=== PATIENT | male | born 1930 | race Caucasian/White ===

== ENCOUNTER 2016-10-03 15:56 | Inpatient (IN) | payer BC ==
--- NOTE | ~2016-10-03 | CN ---
Consultation Report [facility] [address] [place]. [address] NAME: FRANCISCO AYALA : 29 STATUS : ADM IN PAT#: [id number] AGE: 86 ADM/REG DATE : 10/03/16 MR#: [id number] REPORT SERV DATE: 10/04/16 DICTATED BY: KAROLINA REYNOLDS DATE: 10/04/16 REPORT STATUS : Draft TRANSCRIBED BY: MODL DATE: 10/04/16 CONSULTATION DATE OF CONSULTATION: 10/03/2016 REASON FOR CONSULTATION: Consulted for osteomyelitis of the left foot and medical management. IDENTIFYING DATA: 1. PCP Bri Pelayo APN. 2. Orthopedist previously saw resident Dr. Carrillo at [facility]. HISTORY OF PRESENT ILLNESS: This is a pleasant 86-year-old, male, who presents to our facility under Dr. Regino Lopez for osteomyelitis of the left foot. The gentleman resides in assisted living facility. At present time, he does have a history of dementia, and he is a very poor historian. What information I have received is from his daughter who is POA. The patient has a history of prostate problems, glaucoma, has had a left foot I and D, where he resided previously in [place], [place], also previous hip replacement at that same facility of [facility] in 2012 previously and presently has had a hip replacement in August of 2016 at [facility]. The patient is on several medications for cardiac history. He is unaware that he even has heart problems. His daughter is not aware of all of his health issues as well. We are actually seeing him for medical management while he is inpatient for osteomyelitis of his left foot. PAST MEDICAL HISTORY: As much as known at present time: 1. Incontinence. 2. Prostate problems. 3. BPH. 4. Glaucoma. 5. Poor historian and based on his medication list, he has coronary artery disease or hypertension. HOME MEDICATIONS: 1. Ferrous sulfate 325 mg p.o. twice a day. 2. Proscar 5 mg p.o. every day at bedtime. 3. Lasix 20 mg p.o. daily. 4. Xalatan 0.005% ophthalmic drops, one drop at bedtime to left eye. 5. Melatonin 5 mg p.o. at bedtime. 6. Namenda 10 mg p.o. twice a day. 7. Remeron 7.5 mg p.o. at bedtime. 8. Percocet 5/325 one tab p.o. every 12 hours p.r.n. 9. MiraLAX powder one packet p.o. daily. 10.Albuterol MDI 2 puffs inhalation every four hours p.r.n. shortness of breath. 11.Norvasc 10 mg p.o. daily. Consultation Report [address] [place]. [address] NAME: FRANCISCO AYALA : 29 STATUS : ADM IN PAT#: [id number] AGE: 86 ADM/REG DATE : 10/03/16 MR#: [id number] REPORT SERV DATE: 10/04/16 DICTATED BY: KAROLINA REYNOLDS DATE: 10/04/16 REPORT STATUS : Draft TRANSCRIBED BY: MAREK DATE: 10/04/16 12.Vitamin C 500 mg p.o. with meals. 13.Aricept 5 mg p.o. twice a day. 14.Trusopt 2% ophthalmic solution, 1 drop ophthalmically twice a day. 15.Cardura 4 mg p.o. twice a day. 16.Doxycycline 100 mg p.o. every 12 hours, last taken 10/03/2016, when initiated unknown. 17.Ferrous sulfate 150 mg p.o. with breakfast. 18.Potassium chloride 20 mEq p.o. three times daily. 19.Zoloft 50 mg p.o. daily. 20.Timolol 0.5% ophthalmic gel 1 drop twice a day to right eye. 21.An antifungal cream to affected area p.r.n. twice daily. ALLERGIES: TO ZOSYN. SOCIAL HISTORY: The patient is a . in April of 2016 when he resided in [facility]. Due to health problems and distance from his daughter, who is ANA, she moved him to [place] which he resides in [facility] in assisted living facility. There are 2 children in the family, brother as well as his daughter. FAMILY HISTORY: The patient is an only child. His father is from an [place] at 57 years old. His mother was of ovarian cancer at 83 years old. SURGICAL HISTORY: 1. Left foot I and D on 07/14/2016 when patient resided in [place], [place], daughter relates from a callus that had gotten infected. Surgery was by Dr. Thomas. 2. In February of 2013, the patient had a left hip replacement that was also in [place], [place]. 3. Right hip replacement August of 2016 at [facility]. REVIEW OF SYSTEMS: Negative other than what is included in the HPI. The patient has no complaints of shortness of breath. No nausea and vomiting. No chest pain. No fever. No abdominal pain, displays no agitation. PHYSICAL EXAMINATION: VITAL SIGNS: From today blood pressure 141/66, respiratory rate 22, heart rate 81, temperature 98.4, O2 saturation 98% on room air. GENERAL: The patient is an 86-year-old, male, resting in bed in no acute distress. NEURO: His head is atraumatic. He is normocephalic. He can answer appropriately to questions but he is confused and a very poor historian. His mood is pleasant and appropriate. NECK: Supple. Trachea is midline. No JVD noted. No obvious thyromegaly or lymphadenopathy. EENT: His sclerae are nonicteric. His pupils are equal and reactive to light. His nares are patent. His mucous membranes are moist. His tongue is midline. No deviation, and his Consultation Report [address] [address] NAME: FRANCISCO AYALA : 29 STATUS : ADM IN [facility]#: [id number] AGE: 86 ADM/REG DATE : 10/03/16 MR#: [id number] REPORT SERV DATE: 10/04/16 DICTATED BY: KAROLINA REYNOLDS DATE: 10/04/16 REPORT STATUS : Draft TRANSCRIBED BY: MODL DATE: 10/04/16 soft palate rises equally on phonation. CHEST: No pain with palpation. LUNGS: Clear to auscultation bilaterally. He has normal respiratory effort. He has no increased work of breathing with conversation. CARDIOVASCULAR: S1, S2. Patient is positive for very loud murmur. Heart rate is 81 noted on telemetry at bed side, sinus rhythm. ABDOMEN: Soft nontender with active bowel sounds. No palpable organomegaly. EXTREMITIES: Pulses are very diminished bilaterally. He does have bilateral edema. No calf tenderness. His left foot has a dressing intact, and he has bilateral Podus boots in place. SKIN: Warm and dry. No unusual rashes or lesions. Normal color, turgor, appropriate for age. PSYCH: The patient is pleasant and cooperative. Appropriate mood and affect. Very poor historian. LABORATORY DATA: Sodium 139, potassium 4.2, chloride 104, BUN 29, creatinine 1.21, GFR 62, glucose 96, calcium 8.8. White blood cell 7.2, hemoglobin 9.6, hematocrit 30.0, platelets 182. He presently has a chest x-ray ordered, and also has an EKG ordered. Dr. Lopez has ordered an MRI of his left foot with contrast and a bilateral lower extremity arterial Doppler for him in the morning. ASSESSMENT AND PLAN: 1. Osteomyelitis of the left foot along with cellulitis. Aware, for which he is admitted by Dr. Regino Lopez. He was seen by Dr. Faye of Infectious Disease, and the patient will receive a left foot culture. He is on vanc, and Azactam was added to his regimen. He is on normal saline at 50 mL/h. There was also a consult for Vascular to see the patient in the a.m. 2. Coronary artery disease, hypertension. The patient is on several cardiac medications. The daughter was unsure of what diagnosis and reason for all these medications. We are going to place patient on telemetry, obtain an EKG. We will continue his Norvasc, his Cardura, we will hold his Lasix for now. 3. Dementia. Aware. The patient's Namenda, Remeron, Aricept, and Zoloft daily will be continued. 4. Benign prostatic hyperplasia. We are aware. We will continue his Proscar. The a.m. labs to be obtained; CMP, CBC, hemoglobin A1c. He had blood cultures and a sedimentation rate ordered, EKG, portable chest x-ray, PT/INR, magnesium. The patient presently resides at [facility] in an assisted living. His daughter is the POA, her number is area code [phone] Faye has already ordered to receive old records from the patient's hip surgery at [facility] and from his admission for the left foot I and D at [facility] in [place], [place]. The hospitalist group would like to thank you for this consultation. We will continue to follow with you and the patient as needed and call us if we can be of any further assistance. Consultation Report [facility] [address] [place]. [address] NAME: FRANCISCO AYALA : 28 STATUS : ADM IN PAT#: [id number] AGE: 86 ADM/REG DATE : 10/03/16 MR#: [id number] REPORT SERV DATE: 10/04/16 DICTATED BY: KAROLINA REYNOLDS DATE: 10/04/16 REPORT STATUS : Draft TRANSCRIBED BY: MARKE DATE: 10/04/16 /MAREK Karolina Reynolds NP / [id number] CC: Colton Cunha
--- NOTE | ~2016-10-03 | OP ---
Record Of Formerly [facility] [address] [place]. [address] NAME: FRANCISCO AYALA : 29 STATUS : ADM IN PAT#: [id number] AGE: 86 ADM/REG DATE : 10/03/16 MR#: [id number] REPORT SERV DATE: 10/11/16 DICTATED BY: SHERLEY MILTON DATE: 10/11/16 REPORT STATUS : Draft TRANSCRIBED BY: MODRoman DATE: 10/11/16 DATE OF PROCEDURE: 10/08/2016 PREOPERATIVE DIAGNOSES: 1. Left 3rd metatarsophalangeal joint osteomyelitis. 2. Left chronic ulceration. 3. Peripheral vascular disease. POSTOPERATIVE DIAGNOSES: 1. Left 3rd metatarsophalangeal joint osteomyelitis. 2. Left chronic ulceration. 3. Peripheral vascular disease. PROCEDURES: 1. Left third digit amputation. 2. Left third metatarsal head amputation. SURGEON: Kanchan Milton D.P.M. ANESTHESIA: General local anesthetic. ESTIMATED BLOOD LOSS: Minimal. COMPLICATIONS: None. INJECTABLES: Approximately 10 mL of a 1:1 mixture of 1% lidocaine plain and 0.5% Marcaine plain. CULTURES: Include aerobic, anaerobic, acid fast, fungal, Gram stain. SPECIMENS: Include 3rd digit as well as 3rd metatarsal head. Last specimen is proximal margin of the third metatarsal, this is on the left side. MATERIALS: Include skin bharath, 4-0 nylon. PROCEDURE IN DETAIL: Under mild sedation, the patient was brought to the operating room and placed on the operating table in a supine position. Following general anesthesia, local anesthesia obtained about the patient's left foot. Left foot, ankle, and lower leg were scrubbed, prepped, and draped in usual aseptic manner. Attention was directed to the procedure. Procedure #1 is left 3rd digit and 3rd metatarsal head amputation. After Dr. Aaron completed his angioplasty of the lower legs, attention was directed to the left foot where a semi-elliptical incision was made encompassing the base of the third digit and encompassing the plantar probing ulceration to the sub 3rd metatarsal head. At this time, sharp dissection continued down and complete disarticulation of the 3rd metatarsophalangeal Record Of [facility]ly [facility] [address] [place]. [address] NAME: FRANCISCO AYALA : 29 STATUS : ADM IN PAT#: [id number] AGE: 86 ADM/REG DATE : 10/03/16 MR#: [id number] REPORT SERV DATE: 10/11/16 DICTATED BY: SHERLEY MILTON DATE: 10/11/16 REPORT STATUS : Draft TRANSCRIBED BY: MAREK DATE: 10/11/16 ensued. Deep cultures were taken. The toe was sent to Pathology for evaluation. The 3rd metatarsal head was noted to be necrotic and nonviable and very soft, and again nonviable upon manipulation. At this time, a sagittal saw was utilized to resect the 3rd metatarsal just proximal to the surgical neck and a proximal margin was sent as well. The head and the proximal margins were sent to Pathology for evaluation. At this time, pulse lavage ensued and attention directed to closure, 2-0 Vicryl for the deep tissue. The skin was reapproximated and coapted, full-thickness with 4-0 nylon and skin bharath. A well-padded sterile dressing and well-padded postoperative shoe were applied. The patient tolerated the procedure and anesthesia well and was transferred to the recovery room with vital signs stable and vascular status intact to all toes. Following a period of postoperative monitoring, the patient will be transferred to floor and will resume antibiotics as per Infectious Disease and Dr. Aaron from the Vascular Service will be following as well. JESSICA/MAREK Kanchan Milton D.P.M. / [id number] CC: Colton Cunha Sherry R.
--- NOTE | ~2016-10-03 | OP ---
Record Of Operation [facility] [address] [place]. [address] NAME: FRANCISCO AYALA : 28 STATUS : DIS IN PAT#: [id number] AGE: 86 ADM/REG DATE : 10/03/16 MR#: [id number] REPORT SERV DATE: 10/16/16 DICTATED BY: SAMY AARON DATE: 10/15/16 REPORT STATUS : Draft TRANSCRIBED BY: MODL DATE: 10/15/16 DATE OF PROCEDURE: 10/08/2016 PREPROCEDURE DIAGNOSIS: Ischemia, left lower extremity. POSTOPERATIVE DIAGNOSES: 1. Left peroneal artery and anterior tibial artery proximal occlusion. 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 PROCEDURES PERFORMED: 1. Antegrade left superficial femoral artery catheterization with direct arteriography. 2. Left lower extremity runoff. 3. Selective catheterization of the left anterior tibial artery and peroneal artery with direct arteriography. 4. Atherectomy, left peroneal artery with a CSI 1.25 catheter secondary angioplasty with 3 x 8 balloon. 5. Atherectomy of the left anterior tibial artery with a CSI 1.25 catheter with secondary angioplasty with 3 x 10 balloon. ANESTHESIA: Local MAC. COMPLICATIONS: None. INDICATION FOR PROCEDURE: Secondary to this very pleasant 86-year-old gentleman presenting with evidence of arterial insufficiency of the left lower extremity, recommendations were made for arteriography to further define his peripheral vascular system and repair this if appropriate. Risks and benefits discussed. Consent was obtained. DETAILS OF PROCEDURE: The patient was brought to the endovascular operating room, placed in supine position, prepped and draped in routine sterile fashion with attention to the left lower extremity. The left SFA was then cannulated with a micropuncture needle in antegrade fashion followed by a wire and a sheath, performed arteriogram and the proximal, mid, and distal SFA, which was patent. Catheter was then advanced to this level. A 6-Slovenian sheath was then placed and a catheter was advanced down to the below-knee popliteal segment. Arteriogram demonstrated occlusion of the peroneal artery and the proximal segment associated 99% obstruction. The anterior tibial artery was also occluded proximally. A wire was then advanced into the peroneal artery and this was then passed distally and then atherectomy was then performed with a CSI 1.25 catheter; standard technique followed by a 3 x 8 angioplasty, this adequately opened this vessel. Next, the anterior tibial artery was then catheterized. A wire was then worked through this obstruction and atherectomy was then performed with a CSI 1.25 catheter; secondary angioplasty with 3 x 10 balloon. Completion imaging showed patency of the both vessels; however, the tibioperoneal trunk had some narrowing and additional angioplasty was required. Completion imaging showed wide patency of the peroneal and the anterior tibial segments with good flow to the foot. At this point, wires and catheters used were then removed. The StarClose was used to close the femoral puncture site. The patient tolerated the procedure well. Record Of Operation [facility] [address] [facility] [facility] [place]. [address] NAME: FRANCISCO AYALA : 28 STATUS : DIS IN PAT#: [id number] AGE: 86 ADM/REG DATE : 10/03/16 MR#: [id number] REPORT SERV DATE: 10/16/16 DICTATED BY: SAMY AARON DATE: 10/15/16 REPORT STATUS : Draft TRANSCRIBED BY: MAREK DATE: 10/15/16 MILENA/MAREK Samy Aaron M.D. / [id number]
[2016-10-03 17:02] LABS: BASOPHILS 0.1 %; BASOPHILS ABSOLUTE 0.01 10/3/uL (0.0-0.16); EOSINOPHILS 1.7 %; EOSINOPHILS ABSOLUTE 0.12 10/3/uL (0.0-0.53); HEMOGLOBIN 9.6 g/dL (13.6-17.8); IMMATURE GRANULOCYTES 0.1 %; IMMATURE GRANULOCYTES ABSOLUTE 0.01 10/3/uL (0.0-0.11); LYMPHOCYTES 28.7 %; LYMPHOCYTES ABSOLUTE 2.05 10/3/uL (0.67-4.30); MEAN CORPUSCULAR HEMOGLOB 27.3 pg (26.0-34.0); MEAN PLATELET VOLUME 9.8 fL (9.2-13.0); MONOCYTES 9.5 %; MONOCYTES ABSOLUTE 0.68 10/3/uL (0.21-1.20); NEUTROPHILS 59.9 %; NEUTROPHILS ABSOLUTE 4.28 10/3/uL (2.02-8.40); PLATELET COUNT 182 10/3/uL (150-400); RED CELL COUNT 3.52 10/6/uL (4.7-6.1)
[2016-10-03 17:04] LABS: MANUAL DIFF NO %; MEAN CORPUSCULAR VOLUME 85.2 fL (80-100); WHITE BLOOD CELLS 7.2 10/3/uL (4.5-10.5)
[2016-10-03] MEDS ORDERED: PROSCAR5 PO (17:16)
[2016-10-03] MEDS ORDERED: NORV10 PO (17:16)
[2016-10-03 17:17] LABS: CALCIUM, SERUM 8.8 MG/DL (8.5-10.4); CHLORIDE, SERUM 104 MMOL/L (96-112); CO2 (CARBON DIOXIDE) 25 MMOL/L (24-34); CREATININE 1.21 MG/DL (0.70-1.30); GFR AFRICAN AMERICAN 62 ML/MIN (>=60); GFR NON AFRICAN AMERICAN 54 ML/MIN (>=60); GLUCOSE, SERUM 96 MG/DL (60-99); POTASSIUM, SERUM 4.2 MMOL/L (3.5-5.3); SODIUM, SERUM 139 MMOL/L (135-148)
[2016-10-03] MEDS ORDERED: XALAT OPH (17:17)
[2016-10-03] MEDS ORDERED: L20 PO (17:17)
[2016-10-03] MEDS ORDERED: MELATONIN5 M1 PO (17:18)
[2016-10-03] MEDS ORDERED: REM15 PO (17:18)
[2016-10-03 17:19] LABS: BUN (BLOOD UREA NITROGEN) 29 MG/DL (6-23)
[2016-10-03] MEDS ORDERED: ZOL50 PO (17:19)
[2016-10-03] MEDS ORDERED: MIRALAX POWDER1 PKT PO (17:19)
[2016-10-03] MEDS ORDERED: CARDU4 PO (17:20)
[2016-10-03] MEDS ORDERED: TRUSOPT2 % OPH (17:20)
[2016-10-03] MEDS ORDERED: ARICEPT5 PO (17:20)
[2016-10-03] MEDS ORDERED: NAMENDA10 MG PO (17:21)
[2016-10-03] MEDS ORDERED: FERROUS SULF325 M1 PO (17:21)
[2016-10-03] MEDS ORDERED: [UNRECOGNIZED DRUG - OTHER] (17:22)
[2016-10-03] MEDS ORDERED: TIMOLOL GEL0.5 % OPH (17:23)
[2016-10-03] MEDS ORDERED: VITC500 PO (17:23)
[2016-10-03] MEDS ORDERED: KLOR-CON M2020 MEQ PO (17:24)
[2016-10-03] MEDS ORDERED: PCET PO (17:25)
[2016-10-03] MEDS ORDERED: PROAIR HFA INH (17:26)
[2016-10-03] MEDS ORDERED: DORYX100 MG PO (17:27)
[2016-10-03] MEDS ORDERED: FESO4 PO (17:31)
[2016-10-03 18:17] LABS: SED RATE 95 MM/HR (0-15)
[2016-10-04 04:11] LABS: BASOPHILS 0.2 %; BASOPHILS ABSOLUTE 0.01 10/3/uL (0.0-0.16); EOSINOPHILS 3.2 %; EOSINOPHILS ABSOLUTE 0.15 10/3/uL (0.0-0.53); HEMOGLOBIN 8.7 g/dL (13.6-17.8); IMMATURE GRANULOCYTES 0.2 %; IMMATURE GRANULOCYTES ABSOLUTE 0.01 10/3/uL (0.0-0.11); LYMPHOCYTES 25.7 %; LYMPHOCYTES ABSOLUTE 1.21 10/3/uL (0.67-4.30); MEAN CORPUS HGB CONC 32.6 g/dL (32.0-36.0); MEAN CORPUSCULAR HEMOGLOB 28.2 pg (26.0-34.0); MEAN CORPUSCULAR VOLUME 86.4 fL (80-100); MEAN PLATELET VOLUME 9.8 fL (9.2-13.0); MONOCYTES 4.9 %; MONOCYTES ABSOLUTE 0.23 10/3/uL (0.21-1.20); NEUTROPHILS 65.8 %; NEUTROPHILS ABSOLUTE 3.09 10/3/uL (2.02-8.40); PLATELET COUNT 144 10/3/uL (150-400); RBC DISTRIBUTION WIDTH 17.7 % (12.0-16.0); RED CELL COUNT 3.09 10/6/uL (4.7-6.1); WHITE BLOOD CELLS 4.7 10/3/uL (4.5-10.5)
[2016-10-04 04:13] LABS: HEMATOCRIT 26.7 % (40.0-51.0); MANUAL DIFF NO %
[2016-10-04 04:16] LABS: INTERNATIONAL NORMAL RATI 1.2 UNITS (-); PROTIME (NOT ORD) 14.9 SEC (12.0-14.5)
[2016-10-04 04:30] LABS: A/G RATIO 0.5 (0.7-1.9); CHLORIDE, SERUM 107 MMOL/L (96-112); CO2 (CARBON DIOXIDE) 26 MMOL/L (24-34); CREATININE 0.99 MG/DL (0.70-1.30); GFR AFRICAN AMERICAN 79 ML/MIN (>=60); GFR NON AFRICAN AMERICAN 68 ML/MIN (>=60); GLOBULIN 3.7 G/DL (2.5-4.1); GLUCOSE, SERUM 97 MG/DL (60-99); POTASSIUM, SERUM 3.8 MMOL/L (3.5-5.3); SGOT(AST) 16 U/L (5-40); SGPT(ALT) 22 U/L (5-65); SODIUM, SERUM 141 MMOL/L (135-148); TOTAL BILIRUBIN 0.3 MG/DL (0-1.2); TOTAL PROTEIN 5.7 G/DL (6.0-8.5)
[2016-10-04 04:31] LABS: ALKALINE PHOSPHATASE 117 U/L (45-117); BUN (BLOOD UREA NITROGEN) 25 MG/DL (6-23)
[2016-10-05 07:25] LABS: BASOPHILS 0.2 %; BASOPHILS ABSOLUTE 0.01 10/3/uL (0.0-0.16); EOSINOPHILS 0 %; HEMATOCRIT 28.7 % (40.0-51.0); HEMOGLOBIN 9.3 g/dL (13.6-17.8); IMMATURE GRANULOCYTES 0.2 %; IMMATURE GRANULOCYTES ABSOLUTE 0.01 10/3/uL (0.0-0.11); LYMPHOCYTES 29.1 %; LYMPHOCYTES ABSOLUTE 1.19 10/3/uL (0.67-4.30); MEAN CORPUS HGB CONC 32.4 g/dL (32.0-36.0); MEAN CORPUSCULAR HEMOGLOB 27.6 pg (26.0-34.0); MEAN CORPUSCULAR VOLUME 85.2 fL (80-100); MONOCYTES 4.6 %; MONOCYTES ABSOLUTE 0.19 10/3/uL (0.21-1.20); NEUTROPHILS 65.9 %; NEUTROPHILS ABSOLUTE 2.69 10/3/uL (2.02-8.40); PLATELET COUNT 195 10/3/uL (150-400); RBC DISTRIBUTION WIDTH 17.4 % (12.0-16.0); RED CELL COUNT 3.37 10/6/uL (4.7-6.1); WHITE BLOOD CELLS 4.1 10/3/uL (4.5-10.5)
[2016-10-05 07:26] LABS: MANUAL DIFF NO %
[2016-10-05 07:37] LABS: CALCIUM, SERUM 8.3 MG/DL (8.5-10.4); CHLORIDE, SERUM 107 MMOL/L (96-112); CO2 (CARBON DIOXIDE) 23 MMOL/L (24-34); CREATININE 0.92 MG/DL (0.70-1.30); GFR AFRICAN AMERICAN 86 ML/MIN (>=60); GFR NON AFRICAN AMERICAN 75 ML/MIN (>=60); PHOSPHORUS, SERUM 2.9 MG/DL (2.5-4.5); POTASSIUM, SERUM 4.1 MMOL/L (3.5-5.3); SODIUM, SERUM 140 MMOL/L (135-148)
[2016-10-05 07:38] LABS: BUN (BLOOD UREA NITROGEN) 21 MG/DL (6-23); GLUCOSE, SERUM 128 MG/DL (60-99)
[2016-10-05 08:22] LABS: PROCALCITONIN 0.06 ng/mL (<0.5)
[2016-10-05 09:38] LABS: SED RATE 78 MM/HR (0-15)
[2016-10-05 11:28] LABS: C-REACTIVE PROTEIN 93.6 MG/L (<8.0)
[2016-10-06 07:05] LABS: BUN (BLOOD UREA NITROGEN) 16 MG/DL (6-23); CALCIUM, SERUM 8.3 MG/DL (8.5-10.4); CHLORIDE, SERUM 106 MMOL/L (96-112); CO2 (CARBON DIOXIDE) 25 MMOL/L (24-34); CREATININE 0.92 MG/DL (0.70-1.30); GFR AFRICAN AMERICAN 86 ML/MIN (>=60); GFR NON AFRICAN AMERICAN 75 ML/MIN (>=60); GLUCOSE, SERUM 89 MG/DL (60-99); SODIUM, SERUM 140 MMOL/L (135-148)
[2016-10-07 07:42] LABS: PROCALCITONIN <0.05 ng/mL (<0.5)
[2016-10-08 10:12] LABS: HEMATOCRIT 30.3 % (40.0-51.0); HEMOGLOBIN 9.8 g/dL (13.6-17.8)
[2016-10-08 10:23] LABS: INTERNATIONAL NORMAL RATI 1.2 UNITS (-); PROTIME (NOT ORD) 14.9 SEC (12.0-14.5)
[2016-10-08 10:24] LABS: BUN (BLOOD UREA NITROGEN) 16 MG/DL (6-23); CALCIUM, SERUM 8.6 MG/DL (8.5-10.4); CHLORIDE, SERUM 109 MMOL/L (96-112); CO2 (CARBON DIOXIDE) 25 MMOL/L (24-34); CREATININE 0.97 MG/DL (0.70-1.30); GFR AFRICAN AMERICAN 81 ML/MIN (>=60); GFR NON AFRICAN AMERICAN 70 ML/MIN (>=60); GLUCOSE, SERUM 87 MG/DL (60-99); POTASSIUM, SERUM 4.1 MMOL/L (3.5-5.3); SODIUM, SERUM 143 MMOL/L (135-148)
[2016-10-10 06:53] LABS: BASOPHILS 0.2 %; BASOPHILS ABSOLUTE 0.01 10/3/uL (0.0-0.16); EOSINOPHILS 4.3 %; EOSINOPHILS ABSOLUTE 0.23 10/3/uL (0.0-0.53); HEMATOCRIT 29.8 % (40.0-51.0); HEMOGLOBIN 9.6 g/dL (13.6-17.8); IMMATURE GRANULOCYTES 0.2 %; IMMATURE GRANULOCYTES ABSOLUTE 0.01 10/3/uL (0.0-0.11); LYMPHOCYTES ABSOLUTE 1.82 10/3/uL (0.67-4.30); MANUAL DIFF NO %; MEAN CORPUS HGB CONC 32.2 g/dL (32.0-36.0); MEAN CORPUSCULAR HEMOGLOB 27.4 pg (26.0-34.0); MEAN CORPUSCULAR VOLUME 84.9 fL (80-100); MEAN PLATELET VOLUME 8.8 fL (9.2-13.0); MONOCYTES 10.7 %; MONOCYTES ABSOLUTE 0.57 10/3/uL (0.21-1.20); NEUTROPHILS 50.6 %; NEUTROPHILS ABSOLUTE 2.71 10/3/uL (2.02-8.40); PLATELET COUNT 242 10/3/uL (150-400); RBC DISTRIBUTION WIDTH 17.4 % (12.0-16.0); RED CELL COUNT 3.51 10/6/uL (4.7-6.1); WHITE BLOOD CELLS 5.4 10/3/uL (4.5-10.5)
[2016-10-10 07:10] LABS: A/G RATIO 0.5 (0.7-1.9); ALBUMIN 2.1 G/DL (3.5-5.0); ALKALINE PHOSPHATASE 124 U/L (45-117); BUN (BLOOD UREA NITROGEN) 14 MG/DL (6-23); CALCIUM, SERUM 8.4 MG/DL (8.5-10.4); CHLORIDE, SERUM 108 MMOL/L (96-112); CO2 (CARBON DIOXIDE) 23 MMOL/L (24-34); CREATININE 0.95 MG/DL (0.70-1.30); GFR AFRICAN AMERICAN 83 ML/MIN (>=60); GFR NON AFRICAN AMERICAN 72 ML/MIN (>=60); GLOBULIN 3.9 G/DL (2.5-4.1); GLUCOSE, SERUM 97 MG/DL (60-99); POTASSIUM, SERUM 3.6 MMOL/L (3.5-5.3); SGOT(AST) 16 U/L (5-40); SGPT(ALT) 19 U/L (5-65); SODIUM, SERUM 143 MMOL/L (135-148); TOTAL BILIRUBIN 0.5 MG/DL (0-1.2)
[2016-10-14 08:20] LABS: BASOPHILS 0.3 %; BASOPHILS ABSOLUTE 0.02 10/3/uL (0.0-0.16); EOSINOPHILS 4.8 %; EOSINOPHILS ABSOLUTE 0.32 10/3/uL (0.0-0.53); IMMATURE GRANULOCYTES 0.1 %; IMMATURE GRANULOCYTES ABSOLUTE 0.01 10/3/uL (0.0-0.11); LYMPHOCYTES 27.6 %; LYMPHOCYTES ABSOLUTE 1.85 10/3/uL (0.67-4.30); MEAN CORPUS HGB CONC 32.3 g/dL (32.0-36.0); MEAN CORPUSCULAR HEMOGLOB 27.6 pg (26.0-34.0); MEAN CORPUSCULAR VOLUME 85.6 fL (80-100); MEAN PLATELET VOLUME 8.9 fL (9.2-13.0); MONOCYTES 9.1 %; MONOCYTES ABSOLUTE 0.61 10/3/uL (0.21-1.20); NEUTROPHILS 58.1 %; NEUTROPHILS ABSOLUTE 3.89 10/3/uL (2.02-8.40); PLATELET COUNT 243 10/3/uL (150-400); RBC DISTRIBUTION WIDTH 16.6 % (12.0-16.0); RED CELL COUNT 3.62 10/6/uL (4.7-6.1); WHITE BLOOD CELLS 6.7 10/3/uL (4.5-10.5)
[2016-10-14 08:26] LABS: BUN (BLOOD UREA NITROGEN) 16 MG/DL (6-23); CALCIUM, SERUM 8.2 MG/DL (8.5-10.4); CHLORIDE, SERUM 108 MMOL/L (96-112); CO2 (CARBON DIOXIDE) 25 MMOL/L (24-34); CREATININE 0.98 MG/DL (0.70-1.30); GFR AFRICAN AMERICAN 80 ML/MIN (>=60); GFR NON AFRICAN AMERICAN 69 ML/MIN (>=60); GLUCOSE, SERUM 90 MG/DL (60-99); POTASSIUM, SERUM 3.7 MMOL/L (3.5-5.3); SODIUM, SERUM 141 MMOL/L (135-148)
[2016-10-14 08:28] LABS: MANUAL DIFF NO %
== END 2016-10-14 16:09 | DRG 504 ==
LOC: SSU1 15:56 → 7NO 10-04 15:57
PROVIDERS: Internal Medicine; Nurse Practitioner Family; Podiatrist Foot & Ankle Surgery; Specialist
PROC: B41G1ZZ Fluoroscopy of Left Lower Extremity Arteries using Low Osmolar Contrast (ICD-10-PCS; 2016-10-08)
PROC: 02HV33Z Insertion of Infusion Device into Superior Vena Cava, Percutaneous Approach (ICD-10-PCS; 2016-10-08)
PROC: 4A02X4A Measurement of Cardiac Electrical Activity, Guidance, External Approach (ICD-10-PCS; 2016-10-08)
PROC: 0Y6U0Z1 Detachment at Left 3rd Toe, High, Open Approach (ICD-10-PCS; principal; 2016-10-08 16:00)
PROC: 047Q3ZZ Dilation of Left Anterior Tibial Artery, Percutaneous Approach (ICD-10-PCS; 2016-10-08 16:00)
PROC: 047U3ZZ Dilation of Left Peroneal Artery, Percutaneous Approach (ICD-10-PCS; 2016-10-08 16:00)
PROC: 04B Lower Arteries, Excision (ICD-10-PCS; 2016-10-08 16:00)
DX: M86.8X7 Other osteomyelitis, ankle and foot (principal); L03.116 Cellulitis of left lower limb; F03.90 Unspecified dementia, unspecified severity, without behavioral disturbance, psychotic disturbance, mood disturbance, and anxiety; I25.10 Atherosclerotic heart disease of native coronary artery without angina pectoris; N40.0 Benign prostatic hyperplasia without lower urinary tract symptoms; Z96.643 Presence of artificial hip joint, bilateral; I10 Essential (primary) hypertension; H40.9 Unspecified glaucoma; E78.5 Hyperlipidemia, unspecified; F32.9 Major depressive disorder, single episode, unspecified
CPT/HCPCS: 28111; 36569; 37229; 37233; 71010; 73522; 73718-LT; 73721-LT; 75710; 80048; 80053; 80202; 83036; 83735; 84100; 84145; 85014; 85018; 85025; 85610; 85652; 86140; 87015; 87040; 87070; 87075; 87077; 87102; 87116; 87186; 87205; 88304; 88305; 88311; 93005; 93923; 97161-GP; 97166-GO; 97530-GP; A9270-GY; C1724; C1725; C1751; C1769; C1894; J1200; J2250; J2370; J2405; J2930; J3010; J3370; Q9967